=== PATIENT | male | born 1995 | race Caucasian/White ===

== ENCOUNTER 2016-08-18 17:03 | Emergency (ER) | payer SELFPAY ==
[2016-08-18 17:25] LABS: BASOPHILS 0.3 % (0.0-2.0); EOSINOPHILS 3.2 % (0-7); HEMATOCRIT 49.2 % (42.0-54.0); HEMOGLOBIN 16.9 g/dL (13.5-17.5); IMMATURE GRANULOCYTES 0.8 % (0-5); LYMPHOCYTES 47.8 % (15-50); MCH 30.2 pg (26.0-34.0); MCHC 34.3 g/dL (31.0-37.0); MCV 87.9 fL (80.0-100.0); MEAN PLATELET VOLUME 10.6 fL (7.4-10.4); MONOCYTES 5.2 % (2-11); NEUTROPHILS 42.7 % (40-80); PLATELET COUNT 180 10x3/uL (130-400); RDW 12.9 % (11.5-14.5); WBC 6.3 10x3/uL (4.8-10.8)
[2016-08-18 17:33] LABS: UDS - AMPHET NEGATIVE QUAL (NEGATIVE); UDS - BARB NEGATIVE QUAL (NEGATIVE); UDS - BENZO NEGATIVE QUAL (NEGATIVE); UDS - COCAINE NEGATIVE QUAL (NEGATIVE); UDS - METH NEGATIVE QUAL (NEGATIVE); UDS - OPIATE NEGATIVE QUAL (NEGATIVE); UDS - PCP NEGATIVE QUAL (NEGATIVE); UDS - THC POSITIVE QUAL (NEGATIVE)
[2016-08-18 17:49] LABS: ALBUMIN 4.4 g/dL (3.4-5.0); ALKALINE PHOSPHATASE 80 U/L (46-116); ALT (SGPT) 21 U/L (10-68); BILIRUBIN - TOTAL 1.24 mg/dL (0.2-1.3); CALC OSMOLALITY 278 mosm/kg (275-300); CARBON DIOXIDE 31.3 mmol/L (21.0-32.0); CHLORIDE - SERUM 102 mmol/L (98-107); CREATININE - SERUM 0.9 mg/dL (0.6-1.3); GLUCOSE 113 mg/dL (74-106); PROTEIN - SERUM 7.6 g/dL (6.4-8.2); SODIUM 140 mmol/L (136-145); UREA NITROGEN 9 mg/dL (7-18); eGFR NON AFRICAN AMERICAN > 90 mL/min (90-120)
== END 2016-08-18 20:16 | disposition short-term general hospital (02) ==
LOC: D.ER 17:03
PROVIDERS: Emergency Medicine
DX: R45.851 Suicidal ideations (principal); F17.200 Nicotine dependence, unspecified, uncomplicated; F12.90 Cannabis use, unspecified, uncomplicated

== ENCOUNTER 2016-12-16 21:52 | Emergency (ER) | payer MEDICAID | END 2016-12-17 00:15 | disposition home or self-care (01) | LOC: D.ER 21:52 | DX: S43.402A Unspecified sprain of left shoulder joint, initial encounter (principal); X58.XXXA Exposure to other specified factors, initial encounter; Y93.89 Activity, other specified; Y92.89 Other specified places as the place of occurrence of the external cause; M25.512 Pain in left shoulder ==

== ENCOUNTER 2017-01-06 00:37 | Emergency (ER) | payer MEDICAID ==
[2017-01-06 01:02] LABS: BASOPHILS 0.3 % (0-2); EOSINOPHILS 2.5 % (0-7); HEMATOCRIT 45.3 % (42.0-54.0); HEMOGLOBIN 15.3 g/dL (13.5-17.5); IMMATURE GRANULOCYTES 0.1 % (0-5); LYMPHOCYTES 42.1 % (15-50); MCH 29.9 pg (26.0-34.0); MCHC 33.8 g/dL (31.0-37.0); MCV 88.6 fL (80.0-100.0); MEAN PLATELET VOLUME 10.1 fL (7.4-10.4); MONOCYTES 7.1 % (2-11); NEUTROPHILS 47.9 % (40-80); PLATELET COUNT 163 10x3/uL (130-400); RBC 5.11 10x6/uL (4.20-6.10); RDW 12.3 % (11.5-14.5); WBC 7.7 10x3/uL (4.8-10.8)
[2017-01-06 01:14] LABS: ALBUMIN 3.8 g/dL (3.4-5.0); ALKALINE PHOSPHATASE 58 U/L (46-116); ALT (SGPT) 18 U/L (10-68); CALC OSMOLALITY 277 mosm/kg (275-300); CALCIUM 8.8 mg/dL (8.5-10.1); CARBON DIOXIDE 29.1 mmol/L (21.0-32.0); CHLORIDE - SERUM 103 mmol/L (98-107); CREATININE - SERUM 0.9 mg/dL (0.6-1.3); GLUCOSE 91 mg/dL (74-106); POTASSIUM - SERUM 3.8 mmol/L (3.5-5.1); PROTEIN - SERUM 6.3 g/dL (6.4-8.2); SODIUM 140 mmol/L (136-145); UREA NITROGEN 11 mg/dL (7-18); eGFR NON AFRICAN AMERICAN > 90 mL/min (90-120)
== END 2017-01-06 01:58 | disposition home or self-care (01) ==
LOC: D.ER 00:37
PROVIDERS: Emergency Medicine
DX: E86.0 Dehydration (principal); F17.200 Nicotine dependence, unspecified, uncomplicated

== ENCOUNTER 2017-01-22 01:49 | Emergency (ER) | payer MEDICAID | END 2017-01-22 02:39 | disposition home or self-care (01) | LOC: D.ER 01:49 | DX: S63.91XA Sprain of unspecified part of right wrist and hand, initial encounter (principal); W22.01XA Walked into wall, initial encounter; Y93.89 Activity, other specified; Y92.019 Unspecified place in single-family (private) house as the place of occurrence of the external cause; F17.200 Nicotine dependence, unspecified, uncomplicated ==

== ENCOUNTER 2017-03-17 17:34 | Emergency (ER) | payer MEDICAID | END 2017-03-17 19:54 | disposition home or self-care (01) | LOC: D.ER 17:34 | DX: S90.02XA Contusion of left ankle, initial encounter (principal); S90.32XA Contusion of left foot, initial encounter; W20.8XXA Other cause of strike by thrown, projected or falling object, initial encounter; Y93.89 Activity, other specified; Y92.219 Unspecified school as the place of occurrence of the external cause ==

== ENCOUNTER 2017-04-09 23:18 | Emergency (ER) | payer MEDICAID ==
[2017-04-10 00:21] LABS: HEMATOCRIT 39.6 % (42.0-54.0); HEMOGLOBIN 13.5 g/dL (13.5-17.5); LYMPHOCYTES 37.1 % (15-50); MCH 29.3 pg (26.0-34.0); MCHC 34.1 g/dL (31.0-37.0); MCV 86.1 fL (80.0-100.0); NEUTROPHILS 60.9 % (40-80); PLATELET COUNT 172 10x3/uL (130-400); RDW 12.7 % (11.5-14.5); WBC 7.6 10x3/uL (4.8-10.8)
[2017-04-10 00:37] LABS: ALBUMIN 3.9 g/dL (3.4-5.0); ALKALINE PHOSPHATASE 68 U/L (46-116); ALT (SGPT) 16 U/L (10-68); AMYLASE - SERUM 47 U/L (25-115); BILIRUBIN - TOTAL 0.83 mg/dL (0.2-1.3); CALC OSMOLALITY 278 mosm/kg (275-300); CALCIUM 8.6 mg/dL (8.5-10.1); CARBON DIOXIDE 28.6 mmol/L (21.0-32.0); CHLORIDE - SERUM 104 mmol/L (98-107); CREATININE - SERUM 0.9 mg/dL (0.6-1.3); GLUCOSE 100 mg/dL (74-106); LIPASE 71 U/L (73-393); POTASSIUM - SERUM 3.7 mmol/L (3.5-5.1); PROTEIN - SERUM 6.9 g/dL (6.4-8.2); SODIUM 140 mmol/L (136-145); UREA NITROGEN 13 mg/dL (7-18); eGFR NON AFRICAN AMERICAN > 90 mL/min (90-120)
== END 2017-04-10 00:50 | disposition home or self-care (01) ==
LOC: D.ER 23:18
PROVIDERS: Family Medicine
DX: N45.1 Epididymitis (principal)

== ENCOUNTER 2017-04-12 19:27 | Emergency (ER) | payer MEDICAID | END 2017-04-12 20:29 | disposition home or self-care (01) | LOC: D.ER 19:27 | DX: Z11.3 Encounter for screening for infections with a predominantly sexual mode of transmission (principal) ==

== ENCOUNTER 2017-05-28 22:15 | Emergency (ER) | payer MEDICAID | END 2017-05-28 23:28 | disposition home or self-care (01) | LOC: D.ER 22:15 | DX: F41.9 Anxiety disorder, unspecified (principal) ==

== ENCOUNTER 2017-06-04 18:12 | Emergency (ER) | payer MEDICAID | END 2017-06-04 19:39 | disposition home or self-care (01) | LOC: D.ER 18:12 | DX: F41.9 Anxiety disorder, unspecified (principal) ==